=== PATIENT | male | born 1985 | race African-American/Black ===

== ENCOUNTER 2017-11-29 19:45 | Emergency (ER) | payer MEDICARE, MEDICAID ==
[~2017-11-29] VITALS: Ht 182.9 cm; Wt 95.3 kg
--- NOTE | 2017-11-29 21:44 | NUR ---
[facility]RA FOR PYSCHE EVAL. PT AMBULATORY TO ER BED 6, PT REPORTED HI-- NO SI, NO ACTIVE PLANS AT THIS TIME. PT AOX3 RR EVEN AND UNLABORED. NO SOB NOTED. NAD NOTED. NO NVD AT THIS TIME. PT WAITING FOR MD MADERA.
--- NOTE | 2017-11-29 21:47 | NUR ---
TYRONE AT BEDSIDE FOR EVAL.
--- NOTE | 2017-11-29 21:49 | NUR ---
CALLED LAB FOR BLOOD DRAW
[2017-11-29 22:01] LABS: BASOPHILS % (AUTO) 0.6 % (0.0-2.0); EOSINOPHILS % (AUTO) 1.7 % (0.0-6.0); HEMATOCRIT 38 % (39-51); HEMOGLOBIN 12.5 g/dL (13.5-17.5); LYMPHOCYTES # (AUTO) 2.1 /CMM (0.8-4.8); LYMPHOCYTES % (AUTO) 27.3 % (20.0-44.0); MEAN CORPUSCULAR HGB CONC 33 g/dl (31.0-36.0); MEAN CORPUSCULAR VOLUME 85 fL (80-96); MONOCYTES # (AUTO) 0.8 /CMM (0.1-1.30); MONOCYTES % (AUTO) 10.2 % (2.0-12.0); NEUTROPHILS # (AUTO) 4.6 /CMM (1.8-8.9); NEUTROPHILS % (AUTO) 60.2 % (43.0-81.0); PLATELET COUNT (AUTO) 266 /CMM (150-450); RDW COEFFICIENT OF VARIATION 14.8 (11.5-15.0); RED BLOOD CELL COUNT(AUTO) 4.48 MIL/uL (4.5-6.0); WHITE BLOOD COUNT (AUTO) 7.7 K/uL (4.3-11.0)
[2017-11-29 22:03] LABS: APPEARANCE,URINE CLEAR (CLEAR); BILIRUBIN,URINE NEGATIVE (NEGATIVE); BLOOD, URINE NEGATIVE Ery/uL (NEGATIVE); COLOR,URINE YELLOW (YELLOW); KETONES,URINE NEGATIVE (NEGATIVE); LEUKOCYTE ESTERASE ,URINE NEGATIVE (NEGATIVE); NITRITE, URINE NEGATIVE (NEGATIVE); PROTEIN,URINE NEGATIVE (NEGATIVE); UGLUCOSE NEGATIVE (NEGATIVE); UROBILINOGEN,URINE 0.2 EU/dL (0.2)
[2017-11-29 22:12] LABS: CALCIUM, SERUM 8.6 mg/dL (8.5-10.1); CARBON DIOXIDE 29 mmol/L (21-32); CHLORIDE 101 mmol/L (98-107); GLUCOSE 95 mg/dL (74-106); POTASSIUM 4.1 mmol/L (3.5-5.1); SODIUM SERUM 138 mmol/L (136-145); UREA NITROGEN, BLOOD 12 mg/dL (7-18)
[2017-11-29 22:23] LABS: ALANINE AMINOTRANSFERASE 41 U/L (12-78); ALBUMIN 3.3 g/dL (3.4-5.0); ALCOHOL, BLOOD < 3 mg/dL (0-0); ALKALINE PHOSPHATASE 83 U/L (46-116); ASPARTATE AMINOTRANSFERASE 20 U/L (15-37); BILIRUBIN,DIRECT 0.1 mg/dL (0.0-0.2); BILIRUBIN,TOTAL 0.4 mg/dL (0.2-1.0); SALICYLATE 3.2 mg/dL (2.8-20.0)
[2017-11-29 22:24] LABS: ACETAMINOPHEN 0 ug/ml (10-30)
[2017-11-29] MEDS ORDERED: OLANZAPINE 5 MG TABLET ONE (22:24)
--- NOTE | 2017-11-29 22:24 | NUR ---
DR. AVILA AT BEDSIDE FOR EVAL.
[2017-11-29] MEDS ORDERED: OLANZAPINE 5 MG TABLET PO ONE (22:30)
--- NOTE | 2017-11-29 23:15 | NUR ---
PER AMIRAH HANSEN. [facility] WILL CALL BACK FOR BED #
--- NOTE | 2017-11-29 23:55 | NUR ---
SPOKE TO AMIRAH [facility], INFORMED NO BEDS AVAILABLE AT THIS TIME. DR. AVILA MADE AWARE. PT IS CLEARED FOR D/C
[2017-11-30 00:01] VITALS: BP 132/70
== END 2017-11-30 00:01 | disposition home or self-care (01) ==
LOC: EDBD 19:47 → ER 19:47
DX: F15.10 Other stimulant abuse, uncomplicated (principal); F24 Shared psychotic disorder; F20.9 Schizophrenia, unspecified; F29 Unspecified psychosis not due to a substance or known physiological condition
CPT/HCPCS: 36415; 80048; 80076; 80305; 80329; 81001; 85025; 99284; A4606; G0480 ×2; 81000-TC; Z7610